=== PATIENT | male | born 1970 | race Caucasian/White ===

== ENCOUNTER 2022-10-07 16:00 | Emergency (ER) | payer SELFPAY ==
[2022-10-07 16:40] VITALS: BP 129/82; PULSE 83; RESP 22; TEMP 36.6; O2SAT 99; BMI 22.8
--- NOTE | 2022-10-07 17:22 | EXP.UTC ---
Discharge Plan Disposition Patient Disposition: Home, Self-Care Condition: Good Prescriptions Prescriptions: New prednisone 5 mg tablets,dose pack See Rx Instructions .ROUTE .COMPLEX Qty: 21 0RF Rx Instructions: take as directed on package instructions hydroxyzine HCl 25 mg tablet 25 mg PO TID PRN (Reason: itching) Qty: 15 0RF No Action amoxicillin 500 mg capsule 500 mg PO Q12H 10 Days Qty: 20 0RF prednisone 20 mg tablet 20 mg PO BID 5 Days Qty: 10 0RF Rx Instructions: administer with food or milk benzonatate 200 mg capsule 200 mg PO TID PRN (Reason: cough) 7 Days Qty: 21 0RF albuterol sulfate 90 mcg/actuation HFA aerosol inhaler 2 puff INHALATION Q6H PRN (Reason: bronchitis) 7 Days Qty: 6.7 0RF Rx Instructions: administer with spacer Referrals Follow up/Referrals: Provider,Referral, MD [Primary Care Provider] - See instructions Activity Restrictions/Add. Instructions Additional Instructions/Restrictions: Start oral steriods on 10/08/22 Oatmeal bathes may help with itching Take Hydroxyzine as prescribed for itching dont take the benadryl with this Follow up with your [facility] Doctor if no improvement or any worsening of symptoms Clinical Impressions Clinical Impression: Rash and nonspecific skin eruption Instructions Patient Instructions: DI for Rash, Hydroxyzine Discharge ED Provider: Nargis Grajeda [facility] General Stated complaint: possible poison elaina Mode of Arrival: Ambulatory Source of Information: Patient Limitations: No Limitations Time Seen by Provider: 10/07/22 17:22 Description of Symptoms (Recalled from Triage Doc. by RN): PATIENT C/O POSSIBLE POISON OAK ALL OVER SINCE THURSDAY HEENT Symptoms (Recalled from RN notes): No Resp Symptoms (Recalled from RN notes): No Skin Symptoms (Recalled from RN notes): Yes MS Symptoms (Recalled from RN notes): No Functional Status (Recalled from RN notes): WNL History of Present Illness Provider Complaint: Patient states that several days ago he was cleaning up tree branches with leaves that had blown down when he started itching and breaking out in rash all over his arms, back and legs States that he has been itching ever since States that he has taken benadryl and it did help with itching but rash still there and still spreading Related Data Previous Rx's Medication Instructions Recorded albuterol sulfate 90 mcg/actuation 2 puff inhalation Q6H PRN 06/29/18 aerosol inhaler bronchitis 7 days #6.7 grams amoxicillin 500 mg capsule 500 mg PO Q12H sinusitis 10 days 06/29/18 #20 caps benzonatate 200 mg capsule 200 mg PO TID PRN cough 7 days #21 06/29/18 caps prednisone 20 mg tablet 20 mg PO BID bronchitis 5 days #10 06/29/18 tabs hydroxyzine HCl 25 mg tablet 25 mg PO TID PRN itching #15 tabs 10/07/22 prednisone 5 mg tablets in a dose See Rx Instructions PO .COMPLEX 10/07/22 pack #21 tabs Allergies Allergy/AdvReac Type Severity Reaction Status Date / Time No Known Allergies Allergy Verified 10/07/22 17:04 Worker's Comp Is this a Worker's Comp case?: No [facility] Disclaimer: The information contained in this section may have been updated after the patient was seen, as this information can be updated by other users. Social History Smoking Status: Never smoker alcohol intake: never current occupational status: employed Travel in the last 8 weeks: None household members: family housing: house ROS Obtained: Yes All systems reviewed & no additional complaints except as documented and Yes Systems reviewed as appropriate & no additional complaints except as documented Constitutional Constitutional: Reports system reviewed and no additional complaints, except as documented and Reports as per HPI ENT Ears, Nose, Mouth, and Throat: Reports system reviewed and no additional complaints, except as documented and Reports as per HPI Cardiovascular Cardiovascular: Reports system reviewe
[2022-10-07 17:40] VITALS: BP 129/82; PULSE 83; RESP 22; TEMP 36.6; O2SAT 99
== END 2022-10-07 17:58 | disposition home or self-care (01) ==
PROVIDERS: Emergency Provider Nurse Practitioner
DX: R21 Rash and other nonspecific skin eruption (principal)
CPT/HCPCS: 96372; 99212; 99214; G0463

== ENCOUNTER → 2022-10-22 11:30 | Outpatient (CLI) | payer SELFPAY ==
[2022-10-22 14:42] LABS: Basophils # 0.1 K/mm3 (0-0.2); Basophils % 1.1 % (0.1-2.0); Eosinophils % 10.7 % (0.1-12.0); Hematocrit 49.5 % (42.0-52.0); Hemoglobin 15.7 g/dL (14.1-18.0); Lymphocytes # 1.6 K/mm3 (0.7-4.5); Mean Corpuscular HGB Conc 31.7 g/dL (31.8-35.4); Mean Corpuscular Hemoglobin 29.5 pg (27.0-31.2); Mean Platelet Volume 8.5 fl (7.4-10.4); Monocytes # 0.7 K/mm3 (0.1-1.0); Monocytes % 7.4 % (1.7-9.3); Neutrophils # 5.7 K/mm3 (1.8-7.8); Neutrophils % 62.8 % (37.0-80.0); Platelet Count 332 K/mm3 (142-424); Red Blood Count 5.32 M/mm3 (4.60-6.20); Red Cell Distribution Width 13.2 % (11.5-17.5); White Blood Count 9.1 K/mm3 (4.8-10.8)
[2022-10-22 15:06] LABS: Alanine Aminotransferase 27 U/L (12-78); Albumin Level 4.2 g/dl (3.5-5.0); Albumin/Globulin Ratio 1.8 (1.1-1.8); Alkaline Phosphatase 69 U/L (38-126); Anion Gap 11.2 mEq/L (5-15); Aspartate Amino Transferase 29 U/L (17-59); Bilirubin,Total 0.7 mg/dl (0.2-1.3); Blood Urea Nitrogen 12 mg/dl (9-20); Calcium 8.9 mg/dl (8.4-10.2); Carbon Dioxide 28 mmol/L (22.0-30.0); Chloride 105 mmol/L (98-107); Chol/HDL Ratio 6.2 (1-3.5); Cholesterol 186 mg/dl (140-200); Estimated Glomerular Filt Rate 71 ml/min (>60); GFR (African American) 85 ML/MIN (>60); Globulin 2.4 g/dL (1.3-3.2); Glucose 77 mg/dl (74-100); HDL Cholesterol 30 mg/dl (40-60); Potassium 4.2 mmoL/L (3.5-5.1); Sodium 140 mmol/L (136-145); Total Protein,Serum 6.6 g/dl (6.3-8.2); Triglycerides 139 mg/dl (30-150); VLDL Cholesterol 28 mg/dL (0-40)
[2022-10-22 15:17] LABS: Direct LDL Cholesterol 132.97 mg/dL (100-129)
[2022-10-22 15:35] LABS: Prostate Specific Ag Screen 1.5 ng/ml (0.0-4.0); Thyroid Stimulating Hormone 0.85 uIU/mL (0.465-4.68)
[2022-10-22 15:39] LABS: 25-OH Vitamin D, Total 37.5 ng/mL (30-100)
== END ==
LOC: LAB.DROPOF 14:33
PROVIDERS: PCP Nurse Practitioner Family; Visit Provider Nurse Practitioner Family
DX: R21 Rash and other nonspecific skin eruption (principal); R53.83 Other fatigue; Z12.5 Encounter for screening for malignant neoplasm of prostate
CPT/HCPCS: 80053; 80061; 82306; 84443; 85025; G0103

== ENCOUNTER 2023-07-02 15:00 | Outpatient (RCR) | payer OTHER, SELFPAY | END 2023-07-02 16:10 | disposition home or self-care (01) | LOC: PT 15:00 | PROVIDERS: Visit Provider Emergency Medicine | DX: M25.512 Pain in left shoulder (principal); M25.532 Pain in left wrist; M54.2 Cervicalgia; M54.6 Pain in thoracic spine; M54.50 Low back pain, unspecified | CPT/HCPCS: 97010; 97012; 97014; 97035; 97110; 97140; 97163; 97164; 97530; G0283 ==

== ENCOUNTER 2024-02-09 15:00 | Outpatient (RCR) | payer SELFPAY | END 2024-02-09 23:59 | disposition home or self-care (01) | LOC: PT 15:00 | PROVIDERS: Visit Provider Physician Assistant Medical | DX: M54.50 Low back pain, unspecified (principal); M76.32 Iliotibial band syndrome, left leg | CPT/HCPCS: 97010; 97014; 97110; 97140; 97163; 97164; G0283 ==

== ENCOUNTER 2024-02-29 09:18 | Emergency (ER) | payer SELFPAY ==
[2024-02-29] VITALS (7 sets, daily range): BP systolic 109–141; BP diastolic 73–87; PULSE 65–97; RESP 18–20; TEMP 36.6; O2SAT 97–100; BMI 22.8
--- NOTE | 2024-02-29 09:26 | PC.NURSE ---
Dr. Thornton at [facility] for pt eval
--- NOTE | 2024-02-29 09:29 | CT_ITS ---
FINAL REPORT CLINICAL HISTORY: upper abd pain, unable to tolerate PO COMPARISON: None FINDINGS: CT OF THE ABDOMEN AND PELVIS WITH CONTRAST Axial CT images of the abdomen and pelvis were obtained after the administration of intravenous contrast. Coronal and sagittal reformatted images were also obtained and reviewed.This study was performed with techniques to keep radiation doses as low as reasonably achievable (ALARA). Individualized dose reduction techniques using automated exposure control or adjustment of mA and/or kV according to the patient's size were employed. Abdomen: The lung bases are clear. The heart is normal in size. The liver has an unremarkable appearance, without evidence of mass or biliary ductal dilatation. The spleen is unremarkable. No adrenal mass is present. There is mild enlargement of the tail of the pancreas of uncertain significance, and mild pancreatitis is not excluded. The kidneys are normal, without evidence of mass or hydronephrosis. The aorta is normal in caliber. There is no free fluid or adenopathy. No mass or abnormal fluid collection is seen. Pelvis: The appendix is enlarged measuring 8 mm in diameter, but there is no convincing periappendiceal inflammatory change to suggest appendicitis. The urinary bladder is unremarkable. No inflammatory process is seen. There is no evidence of mass or adenopathy. There is no evidence of bowel obstruction. There is an inferiorly extruded left L4-5 disc, producing L5 left nerve root impingement. There is mild diffuse colon wall thickening, mild colitis not excluded. IMPRESSION: Mild enlargement of the tail of the pancreas, a finding of uncertain significance, however mild pancreatitis is not excluded. Mild diffuse colon wall thickening is present, with mild colitis not excluded. Inferiorly extruded left paracentral disc at the L4-5 level, likely producing left L5 nerve root impingement. Reviewed, Interpreted and Dictated by Kodak Connelly III, MD Transcribed by Anny Nguyen Authenticated and [facility]
--- NOTE | 2024-02-29 09:35 | ED_ITS ---
Discharge Plan Disposition Patient Disposition: Home, Self-Care Condition: Good Prescriptions Prescriptions: New naproxen 500 mg tablet 500 mg PO BID Qty: 20 0RF pantoprazole 40 mg tablet,delayed release (DR/EC) 40 mg PO DAILY Qty: 30 0RF metoclopramide HCl [Reglan] 10 mg tablet 10 mg PO Q6H PRN (Reason: nausea and vomiting) Qty: 12 0RF No Action prednisone 20 mg tablet 20 mg PO BID Qty: 40 0RF Rx Instructions: 40mg BID x 3 days 30mg BID x 3 days 20mg ROBERT x 5 days 10mg BID x 3 days Referrals Follow up/Referrals: Nolan Carltno APRN [Primary Care Provider] - See instructions Activity Restrictions/Add. Instructions Additional Instructions/Restrictions: You were evaluated in the emergency department today. Please follow-up closely with your primary care provider. Eat a bland diet until your symptoms have resolved. 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 You may also take Tylenol every 4-6 hours as needed for pain. Return to the emergency department for new or worsening symptoms. Clinical Impressions Clinical Impression: Colitis, Pancreatitis Stand Alone Forms Stand Alone Forms: Work/School Release Instructions Patient Instructions: DI for Acute Abdominal Pain, DI for Colitis Print Language Print Language: Bengali Discharge ED Provider: Nathalia Thornton General Adult HPI General Chief complaint: Abdominal Pain Stated complaint: abd pain Time Seen by Provider: 02/29/24 09:26 History of Present Illness HPI narrative: This patient is a 53-year-old male with a history of tobacco abuse as well as sciatica presented to the emergency department for evaluation with concern for abdominal pain. Patient reports that 1 week ago, he ate pancakes and felt like they turned into cement in his stomach. He states that he could not get them to move through and was having intractable nausea and vomiting. He states that at some point after that, he did feel the move through, but has had persistent abdominal pain and limited oral intake since. His pain is in his left upper quadrant. He states that he is able to eat and drink some, but not nearly as much as usual. He notes that eating does make his pain worse. He has been having mushy, loose stools as well. He is still passing gas okay. No prior abdominal surgical history. Related Data Previous Rx's ?Medication ?Instructions ?Recorded prednisone 20 mg tablet 20 mg PO BID #40 tabs 10/22/22 metoclopramide HCl 10 mg tablet 10 mg PO Q6H PRN nausea and 02/29/24 (Reglan) vomiting #12 tabs naproxen 500 mg tablet 500 mg PO BID #20 tabs 02/29/24 pantoprazole 40 mg tablet,delayed 40 mg PO DAILY #30 tabs 02/29/24 release Allergies Allergy/AdvReac Type Severity Reaction Status Date / Time No Known Allergies Allergy Verified 02/29/24 09:37 [facility] Disclaimer: The information contained in this section may have been updated after the patient was seen, as this information can be updated by other users. Social History Smoking Status: Current every day smoker tobacco type: cigarettes packs per day: 1 alcohol intake: never current occupational status: employed Travel in the last 8 weeks: None household members: family housing: house ROS Obtained: Yes All systems reviewed & no additional complaints except as documented Physical Exam General General appearance: alert and in no apparent distress Head Head exam: atraumatic and normocephalic Eye Eye exam: Present normal appearance, PERRL and EOMI ENT ENT exam: Present normal exam, normal oropharynx, mucous membranes moist and normal external ear exam Neck Neck exam: Present normal inspection, full ROM and trachea midline; Absent tenderness Chest Chest inspection: Present normal inspection and symmetric chest wall rise; Absent tenderness Respiratory Respiratory exam: Present normal lung sounds bilaterally; Absent respiratory distress, wheezes, stridor or accessory muscle use Cardiovascular Cardiovascular exam: Present regular rate and normal rhythm Abdominal Exam Abdominal exam: Present soft and tenderness (Mild epigastric/left upper quadrant); Absent distention or guarding Extremities Exam Extremities exam: Present normal inspection, full ROM and normal capillary refill; Absent tenderness or edema Back Exam Back exam: Present normal inspection and full ROM; Absent tenderness Neurological Exam Neurological exam: Present alert, oriented X3, CN II-XII intact and normal gait; Absent motor sensory deficit Psychiatric Psychiatric exam: Present normal affect and normal mood Skin Skin exam: Present warm and dry Medical Decision Making Medical Records Medical records reviewed: Yes I reviewed the patient's medical records. Jose Maria Inquiry Pt receiving controlled substance: No Vital Signs: 02/29/24 09:30 02/29/24 09:32 02/29/24 10:00 Temperature 97.9 F Temperature Source Oral Pulse Rate 89 73 Pulse Rate [Left] 97 H Respiratory Rate 18 Blood Pressure 119/85 114/79 Blood Pressure [Right Arm] 109/87 L Blood Pressure Mean 93 91 Blood Pressure Mean [Right Arm] 94 Blood Pressure Source Blood Pressure Source [Right Arm] Automatic Cuff Blood Pressure Position Blood Pressure Position [Right Arm] Sitting 02 Sat by Pulse Oximetry 98 97 97 Oxygen Delivery Method Room Air Room Air Room Air 02/29/24 10:30 02/29/24 11:00 02/29/24 11:30 Temperature Temperature Source Pulse Rate 65 70 65 Pulse Rate [Left] Respiratory Rate 18 20 18 Blood Pressure 126/73 130/79 141/83 H Blood Pressure [Right Arm] Blood Pressure Mean Blood Pressure Mean [Right Arm] Blood Pressure Source Blood Pressure Source [Right Arm] Blood Pressure Position Blood Pressure Position [Right Arm] 02 Sat by Pulse Oximetry 99 100 99 Oxygen Delivery Method Room Air Room Air Room Air 02/29/24 12:49 Temperature 97.9 F Temperature Source Oral Pulse Rate 65 Pulse Rate [Left] Respiratory Rate 18 Blood Pressure 141/83 H Blood Pressure [Right Arm] Blood Pressure Mean Blood Pressure Mean [Right Arm] Blood Pressure Source Automatic Cuff Blood Pressure Source [Right Arm] Blood Pressure Position Sitting Blood Pressure Position [Right Arm] 02 Sat by Pulse Oximetry Oxygen Delivery Method Room Air Lab Data Lab results reviewed: Yes I reviewed the patient's lab results. Lab Results 02/29/24 09:35: WBC 11.7 H, RBC 5.10, Hgb 16.6, Hct 48.6, MCV 95.3 H, MCH 32.5 H , MCHC 34.1, RDW 12.6, Plt Count 341, MPV 8.1, Neut % (Auto) 70.8, Lymph % (Auto) 18.2, [place] % (Auto) 8.2, Eos % (Auto) 1.7, Baso % (Auto) 1.1, Neut # (Auto) 8.3 H, Lymph # (Auto) 2.1, [place] # (Auto) 1.0, Eos # (Auto) 0.2, Baso # (Auto) 0.1, Sodium 136, Potassium 3.6, Chloride 101, Carbon Dioxide 26, Anion Gap 12.6, BUN 15, Creatinine 1.10, Estimated Creat Clear 76, Estimated GFR 70, Est GFR ( Amer) 85, Glucose 103 H, Lactate 1.1, Calcium 9.3, Total Bilirubin 1.1, AST 23, ALT 19, Alkaline Phosphatase 70, Total Protein 7.3, Albumin 4.3, Globulin 3.0, Albumin/Globulin Ratio 1.4, Lipase 292 02/29/24 10:30: Urine Color Yellow, Urine Appearance Clear, Urine pH 7.0, Ur Specific Weld <= 1.005, Urine Protein Negative, Urine Glucose (UA) Negative, Urine Ketones 2+, Urine Blood Trace-i, Urine Nitrate Negative, Urine Bilirubin Negative, Urine Urobilinogen 1.0, Ur Leukocyte Esterase Negative, Urine RBC Occasional, Urine WBC Occasional, Ur Squamous Epith Cells Occasional, Urine Bacteria None 02/29/24 09:35 02/29/24 09:35 Orders (Tests/Meds): ED MEDICATIONS Discontinued Medications Generic Name Dose Route Start Last Admin Trade Name Freq PRN Reason Stop Dose Admin Acetaminophen 1,000 mg 02/29/24 09:29 02/29/24 09:43 Acetaminophen 1,000mg/100ml Vial IV 02/29/24 09:30 1,000 mg ONCE ONE Administration Famotidine 20 mg 02/29/24 09:29 02/29/24 09:43 Famotidine 20mg/2ml Vial IV 02/29/24 09:30 20 mg ONCE ONE Administration Lactated Ringer's 1,000 mls @ 999 mls/hr 02/29/24 09:29 02/29/24 09:43 Lactated Ringer's 1000 Ml Bag IV 02/29/24 10:29 999 mls/hr .Q1H1M ONE Administration Iopamidol 75 ml 02/29/24 09:49 02/29/24 09:50 Iopamidol-370 (76%);100ml Bottle IV 02/29/24 09:50 75 ml ONCE ONE Administration Metoclopramide HCl 5 mg 02/29/24 09:29 02/29/24 09:42 Metoclopramide Hcl 10mg/2ml Vial IVP 02/29/24 09:30 5 mg ONCE ONE Administration Sodium Chloride 8 ml 02/29/24 09:29 02/29/24 09:42 Sodium Chloride 0.9% 10ml Vial IV 03/30/24 09:28 8 ml NEEDED PRN Administration dilute pepcid Sodium Chloride 10 ml 02/29/24 09:49 02/29/24 09:50 Sodium Chloride 0.9% 10ml Syr (Rad Only) IV 03/30/24 09:48 10 ml NEEDED PRN Administration Maintain IV Site ORDERS Category Date Time Status CT abdomen pelvis w con Stat Cat Scan 02/29/24 09:29 Completed Complete Blood Count Auto Diff Stat Lab 02/29/24 09:35 Completed Comprehensive Metabolic Panel Stat Lab 02/29/24 09:35 Completed Lactic Acid Stat Lab 02/29/24 09:35 Completed Lipase Stat Lab 02/29/24 09:35 Completed UA [Urinalysis and Microscopic] Stat Lab 02/29/24 10:30 Completed Medical Decision Narrative: In summary, this patient is a 53-year-old male presenting to the Emergency Department for evaluation of abdominal pain, nausea, vomiting, and loose stool. Differential diagnoses considered include but are not limited to gastroenteritis, colitis, pancreatitis, cholecystitis, hepatitis. Ruling out the most morbid conditions drove assessment. It should be noted patient's history includes tobacco dependence which is not at goal therapy. This complicates all aspects of care by increasing patient's risk for morbidity. On exam, the patient is sitting upright in chair and resting comfortably with reassuring vital signs on cardiac telemetry. He has some epigastric/left upper quadrant tenderness, but otherwise abdominal exam is benign workup included CBC, CMP, lipase, lactic acid, urinalysis, diarrhea panel, CT abdomen pelvis with IV contrast. He was given a bolus of IV fluids as well as IV Reglan, acetaminophen, and Pepcid for symptomatic. I independently interpreted CT scan prior to the radiologist read and noted concerns for potential colitis. Please see their read for final interpretation. Labs were obtained that demonstrated no acute concerning abnormalities aside from very mild leukocytosis, which is nonspecific. Patient was not able to provide a stool sample here.. On reassessment, patient had great improvement after administration of interventions above. He is feeling much better. He is able to tolerate oral intake without difficulty. Given this, I feel it is appropriate for discharge home with instructions for supportive management of colitis. He is given prescriptions for Reglan and naproxen for symptomatic improvement as well as pantoprazole. He was given very strict return precautions and instructions for close outpatient follow-up. He was discharged after all questions were answered. Critical Care Critical Care Time Critical Care Time: No
[2024-02-29] MEDS: SODIUM CHLORIDE 0.9% 10ML VIAL 8 ML IV (09:42)
[2024-02-29] MEDS: METOCLOPRAMIDE HCL 10MG/2ML VIAL 5 MG IVP (09:42)
[2024-02-29] MEDS: LACTATED RINGERS 1000ML 1,000 ML 999 ML IV (09:43)
[2024-02-29] MEDS: ACETAMINOPHEN 1,000MG/100ML VIAL 1000 MG IV (09:43)
[2024-02-29] MEDS: FAMOTIDINE 20MG/2ML VIAL 20 MG IV (09:43)
[2024-02-29 09:46] LABS: Basophils # 0.1 K/mm3 (0-0.2); Basophils % 1.1 % (0.1-2.0); Eosinophils # 0.2 K/mm3 (0.0-0.4); Eosinophils % 1.7 % (0.1-12.0); Hematocrit 48.6 % (42.0-52.0); Hemoglobin 16.6 g/dL (14.1-18.0); Lymphocytes # 2.1 K/mm3 (0.7-4.5); Lymphocytes % 18.2 % (10-50); Mean Corpuscular HGB Conc 34.1 g/dL (31.8-35.4); Mean Corpuscular Hemoglobin 32.5 pg (27.0-31.2); Mean Corpuscular Volume 95.3 fl (80-94); Mean Platelet Volume 8.1 fl (7.4-10.4); Monocytes % 8.2 % (1.7-9.3); Neutrophils # 8.3 K/mm3 (1.8-7.8); Neutrophils % 70.8 % (37.0-80.0); Platelet Count 341 K/mm3 (142-424); Red Cell Distribution Width 12.6 % (11.5-17.5); White Blood Count 11.7 K/mm3 (4.8-10.8)
--- NOTE | 2024-02-29 09:46 | PC.NURSE ---
PT TO CT
[2024-02-29] MEDS: SODIUM CHLORIDE 0.9% 10ML SYR (RAD ONLY) 10 ML IV (09:50)
[2024-02-29] MEDS: IOPAMIDOL-370 (76%);100ML BOTTLE 75 ML IV (09:50)
--- NOTE | 2024-02-29 09:57 | PC.NURSE ---
I rounded on the pt upon return from CT. no new complaints. I took him a warm blanket. call garza in reach.
[2024-02-29 09:59] LABS: Lactic Acid 1.1 mmol/L (0.7-2.1)
[2024-02-29 10:00] LABS: Alanine Aminotransferase 19 U/L (12-78); Albumin Level 4.3 g/dl (3.5-5.0); Albumin/Globulin Ratio 1.4 (1.1-1.8); Alkaline Phosphatase 70 U/L (38-126); Anion Gap 12.6 mEq/L (5-15); Aspartate Amino Transferase 23 U/L (17-59); Bilirubin,Total 1.1 mg/dl (0.2-1.3); Blood Urea Nitrogen 15 mg/dl (9-20); Calcium 9.3 mg/dl (8.4-10.2); Carbon Dioxide 26 mmol/L (22.0-30.0); Chloride 101 mmol/L (98-107); Creatinine Clearance Estimated 76 mL/min (50-200); Estimated Glomerular Filt Rate 70 ml/min (>60); GFR (African American) 85 ML/MIN (>60); Glucose 103 mg/dl (74-100); Lipase 292 U/L (23-300); Potassium 3.6 mmoL/L (3.5-5.1); Sodium 136 mmol/L (136-145); Total Protein,Serum 7.3 g/dl (6.3-8.2)
--- NOTE | 2024-02-29 10:25 | PC.NURSE ---
URINAL PROVIDED FOR URINE SAMPLE
[2024-02-29 10:32] LABS: Microscopic, Urine URINE MICROSCOPIC (MICROSCOPIC)
[2024-02-29 10:55] LABS: Appearance,Urine CLEAR (Clear); Bilirubin,Urine Negative (Negative); Blood, Urine TRACE-I (Negative); Color,Urine YELLOW (Yellow); Glucose,Urine (UA) Negative (Negative); Ketones,Urine 2+ (Negative); Leukocyte Esterase,Urine Negative (Negative); Nitrate,Urine Negative (Negative); Protein,Urine Negative (Negative); Specific Gravity, Urine <= 1.005 (1.005-1.030)
[2024-02-29 11:22] LABS: RBC,Urine Occasional #/hpf (0-3); Squamous Epithelial Cell,Urine Occasional #/hpf (0-5); WBC,Urine Occasional #/hpf (0-3)
--- NOTE | 2024-02-29 11:25 | PC.NURSE ---
CRACKER AND WATER PROVIDED
--- NOTE | 2024-02-29 11:28 | PC.NURSE ---
DR BURKETT AT BEDSIDE TO UPDATE PT
== END 2024-02-29 12:50 | disposition home or self-care (01) ==
PROVIDERS: Emergency Provider Emergency Medicine; PCP Nurse Practitioner Family
DX: R10.12 Left upper quadrant pain (principal); K85.90 Acute pancreatitis without necrosis or infection, unspecified; K52.9 Noninfective gastroenteritis and colitis, unspecified; R11.2 Nausea with vomiting, unspecified; F17.210 Nicotine dependence, cigarettes, uncomplicated
CPT/HCPCS: 74177; 80053; 81001; 83605; 83690; 85025; 96361; 96374; 96375; 99284; J0131; J2765; J7120; Q9967; S0028